=== PATIENT | female | born 1960 | race Asian ===

== ENCOUNTER 2019-01-07 18:13 | Emergency (ER) | payer OTHER ==
[~2019-01-07] VITALS: Ht 165.1 cm; Wt 56.7 kg
[2019-01-07 18:20] VITALS: BP 103/71
[2019-01-07] MEDS ORDERED: IBUPROFEN 600 MG TAB PO ONE (18:40)
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
--- NOTE | 2019-01-07 18:46 | NUR ---
XRAY AT BEDSIDE
--- NOTE | 2019-01-07 19:12 | NUR ---
REPORT TO [facility]
--- NOTE | 2019-01-07 19:14 | NUR ---
ASSUMED CARE OF PT FROM [facility].
[2019-01-07 19:47] VITALS: BP 103/71
--- NOTE | 2019-01-07 19:47 | NUR ---
Patient discharged with v/s stable. Written and verbal after care instructions given and explained. Patient verbalized understanding. Ambulatory with steady gait. All questions addressed prior to discharge. Advised to follow up with PMD. MEDICATION PRESCRIPTION NAPROXEN WAS GIVEN
== END 2019-01-07 19:47 | disposition home or self-care (01) ==
LOC: MED 18:13
DX: S50.01XA Contusion of right elbow, initial encounter (principal); V89.2XXA Person injured in unspecified motor-vehicle accident, traffic, initial encounter; Y93.89 Activity, other specified; Y92.89 Other specified places as the place of occurrence of the external cause; Y99.8 Other external cause status
CPT/HCPCS: 73080; 99283